=== PATIENT | male | born 2000 | race Caucasian/White ===

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

== ENCOUNTER 2021-08-30 12:58 | Emergency (ER) | payer SELFPAY ==
[2021-08-30 13:26] VITALS: BP 139/81; PULSE 86; RESP 17; TEMP 36.4; O2SAT 98
--- NOTE | 2021-08-30 13:30 | ED.GENADULT ---
HPI - General Adult General Chief complaint: Unspecified Stated complaint: jaw pain Time Seen by Provider: 08/30/21 13:14 Source: patient Mode of arrival: ambulatory Limitations: no limitations History of Present Illness HPI narrative: 20-year-old male Complains of waking up this morning with some swelling of his left lower jaw and pain in the back of his mouth on that side Symptoms are worsened by chewing or by opening his mouth He also has some discomfort when he swallows He does not have a fever or a sore throat Related Data Home Medications Medication Instructions Recorded Confirmed insulin glargine [Basaglar KwikPen 45 unit SUBCUT QAM 10/04/20 U-100 Insulin] insulin lispro [Humalog Pen] 10 unit SUBCUT HS 10/04/20 Allergies Allergy/AdvReac Type Severity Reaction Status Date / Time Penicillins Allergy Unknown RASH Verified 10/04/20 15:37 Review of Systems Constitutional: Constitutional: Denies fever(s) ENT: Reports dental pain, Denies dysphagia, Denies hoarseness, Denies lip swelling and Reports mouth pain Respiratory: Respiratory: Denies cough and Denies dyspnea [facility] Past Medical History Medical History Diabetes mellitus Social History Social History Smoking status: Current every day smoker Gender identity (if verbalized by the patient): Male Exam Const: General: healthy appearing, no acute distress and alert; No acute distress HENMT: Ears: TM normal on the left and no periauricular adenopathy Face and sinus: no sinus tenderness Mouth: Yes Normal oral and palatal mucosa present, No audible dysphonia and No drooling Teeth and gingiva: other (#17 tender to percuss, no gross caries, no gross visible abscess) Throat: tonsils normal, uvula midline, no peritonsillar masses and uvula not displaced Other: No adenopathy, no tenderness or induration to the floor of the mouth Neck: Neck: no lymphadenopathy Resp: Effort & Inspection: normal respiratory effort and not labored Course Vital Signs Vital signs: Vital Signs Temperature 36.4 C L 08/30/21 13:26 Pulse Rate 86 08/30/21 13:26 Respiratory Rate 17 08/30/21 13:26 Blood Pressure 139/81 08/30/21 13:26 Pulse Oximetry 98 08/30/21 13:26 Temperature 36.4 C L 08/30/21 13:26 Pulse Rate 86 08/30/21 13:26 Respiratory Rate 17 08/30/21 13:26 Blood Pressure 139/81 08/30/21 13:26 Pulse Oximetry 98 08/30/21 13:26 Medical Decision Making Vital Signs Vital Signs: Vital Signs Temperature 36.4 C L 08/30/21 13:26 Pulse Rate 86 08/30/21 13:26 Respiratory Rate 17 08/30/21 13:26 Blood Pressure 139/81 08/30/21 13:26 Pulse Oximetry 98 08/30/21 13:26 Temperature 36.4 C L 08/30/21 13:26 Pulse Rate 86 08/30/21 13:26 Respiratory Rate 17 08/30/21 13:26 Blood Pressure 139/81 08/30/21 13:26 Pulse Oximetry 98 08/30/21 13:26 Discharge Plan Discharge Clinical Impression: Dentalgia Patient Disposition: Home, Self-Care Condition: Stable Instructions: Antibiotic Form, Dental Abscess (ED) Additional Instructions: Important for you to schedule a follow-up examination with a dentist or oral surgeon to at least have some dental x-rays done and possibly the tooth extracted Prescriptions: New clindamycin HCl 300 mg capsule 300 mg PO QID Qty: 28 RF: 0 No Action insulin lispro [Humalog Pen] 100 unit/mL Insulin Pen 10 unit SUBCUT HS RF: 0 Basaglar KwikPen U-100 Insulin 100 unit/mL (3 mL) Insulin Pen 45 unit SUBCUT QAM RF: 0 Basaglar KwikPen U-100 Insulin 100 unit/mL (3 mL) insulin pen 45 unit subcut QPM Qty: 3 RF: 0 insulin lispro [Humalog KwikPen Insulin] 100 unit/mL insulin pen 3 unit subcut DAILY Qty: 3 RF: 0 Follow-up/Referrals: Man,Rachel Beasley [Primary Care Provider] - (Next week as needed)
== END 2021-08-30 14:06 | disposition home or self-care (01) ==
PROVIDERS: Emergency Provider Emergency Medicine; PCP Internal Medicine Infectious Disease
DX: K08.89 Other specified disorders of teeth and supporting structures (principal)
CPT/HCPCS: 99283

== ENCOUNTER 2022-07-03 16:47 | Emergency (ER) | payer OTHER, SELFPAY ==
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
[2022-07-03 16:57] VITALS: BP 142/84; PULSE 90; RESP 18; TEMP 36.8; O2SAT 98
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
== END 2022-07-03 21:15 | disposition home or self-care (01) ==
PROVIDERS: Emergency Provider Emergency Medicine
DX: S46.911A Strain of unspecified muscle, fascia and tendon at shoulder and upper arm level, right arm, initial encounter (principal); T14.8XXA Other injury of unspecified body region, initial encounter; V28.4XXA Motorcycle driver injured in noncollision transport accident in traffic accident, initial encounter; E11.9 Type 2 diabetes mellitus without complications; F17.200 Nicotine dependence, unspecified, uncomplicated; Z79.4 Long term (current) use of insulin
CPT/HCPCS: 71046; 73030; 73564; 73590; 73610; 99284

== ENCOUNTER 2022-07-28 09:50 | Outpatient (CLI) | payer OTHER, SELFPAY ==
--- NOTE | ~2022-07-28 | XR_ITS ---
XR cervical spine 4-5V 07/28/2022 10:25 Indication: Neck pain and radiculopathy Procedure: 4 views of the cervical spine Comparison: No prior studies for comparison. Findings: No prevertebral soft tissue swelling. Vertebral body and disc heights are preserved. Odonto id process is normal. Lung apices are normal. Impression: 1: No significant abnormality of the cervical spine. Reviewed, dictated and finalized at location A. Impression: 1: No significant abnormality of the cervical spine.
== END 2022-07-28 09:51 | disposition home or self-care (01) ==
LOC: ANHIMG 10:05
PROVIDERS: Visit Provider Chiropractor
DX: M54.12 Radiculopathy, cervical region (principal); M99.01 Segmental and somatic dysfunction of cervical region; M99.02 Segmental and somatic dysfunction of thoracic region; M79.18 Myalgia, other site
CPT/HCPCS: 72050

== ENCOUNTER 2022-08-04 08:02 | Outpatient (CLI) | payer OTHER, SELFPAY ==
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
--- NOTE | ~2022-08-04 | MR_ITS ---
EXAMINATION: MR foot LT wo con DATE: 08/04/2022 09:34 INDICATION: Left foot pain. TECHNIQUE: Magnetic resonance imaging (MRI) of the left foot was performed without intravenous contra st. COMPARISON: Left ankle radiographs 07/03/2022 FINDINGS: There is a skin marker anterior to the ankle. Bone alignment is normal. No fracture. There is edema-like marrow signal intensity in calcaneus and cuboid at either side of calcaneocuboid joint, likely stress reaction. There are changes of prior sprain of the superficial component of deltoid li gament characterized by increased signal intensity. There are changes of prior sprains of anterior ta lofibular ligament, calcaneofibular ligament, and anterior tibiofibular ligament characterized by thi ckening and increased signal intensity. Posterior talofibular ligament and posterior tibiofibular lig aments are normal. There is mild peroneus longus tendinopathy. The Achilles tendon is normal. The med ial and anterior ankle tendons are normal. There is no joint effusion. The plantar fascia is normal. IMPRESSION: 1. Edema-like marrow signal intensity in calcaneus and cuboid at either side of calcaneocuboid joint, likely stress reaction. 2. Medial and lateral ankle sprains. Reviewed, dictated and finalized at location B.
== END 2022-08-04 08:03 | disposition home or self-care (01) ==
PROVIDERS: PCP Internal Medicine Infectious Disease; Visit Provider Internal Medicine
DX: M79.672 Pain in left foot (principal); S49.91XA Unspecified injury of right shoulder and upper arm, initial encounter; M79.89 Other specified soft tissue disorders; S93.492A Sprain of other ligament of left ankle, initial encounter; S49.81XA Other specified injuries of right shoulder and upper arm, initial encounter; S43.431A Superior glenoid labrum lesion of right shoulder, initial encounter
CPT/HCPCS: 73221; 73718

== ENCOUNTER 2024-08-10 17:55 | Inpatient (IN) | payer BC, SELFPAY ==
--- NOTE | ~2024-08-10 | CT_ITS ---
EXAMINATION: CTA chest PE protocol DATE: 08/10/2024 21:38 INDICATION: Chest pain and elevated d-dimer. TECHNIQUE: Computed tomography (CT) pulmonary angiogram of the chest was performed with 100 mL Omnipa que-350 intravenous contrast. Additional 3D reconstructions utilizing coronal maximum intensity proje ction (MIP) were performed. Automated exposure control and iterative reconstruction technique were em ployed. The dose-length product was 695.08 mGy-cm. COMPARISON: None FINDINGS: No pulmonary embolism. Lungs are clear with no pneumonia, pulmonary edema or other pulmonary infiltra alan. No pleural effusion or pneumothorax. Heart size is normal. Thoracic aorta is normal in caliber w ith no dissection. Small amount residual thymic tissue in the anterior mediastinum. No pathologically enlarged thoracic lymphadenopathy. Visualized upper abdomen is unremarkable. Mild thoracic levocurva ture with mild spondylosis. IMPRESSION: 1. No pulmonary nodule is more other acute cardiopulmonary disease. Reviewed, dictated and finalized at location A.
--- NOTE | ~2024-08-10 | XR_ITS ---
CHEST RADIOGRAPH, PA AND LATERAL CLINICAL HISTORY: chest pain . COMPARISON: 07/03/2022 TECHNIQUE: PA and lateral views of the chest. FINDINGS The cardiomediastinal silhouette is unremarkable. The lungs are clear. Visualized osseous structures and soft tissues are unremarkable. IMPRESSION: No focal infiltrate or effusion. Reviewed, dictated and finalized at location A.
[2024-08-10 17:57] VITALS: BP 130/84; PULSE 104; RESP 18; TEMP 36.4; O2SAT 97
--- NOTE | 2024-08-10 17:58 | ECG_ITS ---
Test Date: 2024-08-10 18:07:47 Measurements Intervals [place] Rate: 106 P: 69 ID: [id number] QRS: 79 QRSD: 88 T: 33 QT: 317 QTc: 421 Interpretive Statements SINUS TACHYCARDIA POSSIBLE LEFT ATRIAL ENLARGEMENT [-0.1mV P WAVE IN V1/V2] NONSPECIFIC ST ELEVATION [0.05+ mV ST ELEVATION] No previous ECG available for comparison Electronically Signed On 08-11-2024 09:39:24 CDT by Darshan Robles M.D.
[2024-08-10 18:10] LABS: Basophils Absolute Auto 0.1 K/mm3 (0.0-0.1); Basophils Percent Auto 1.1 % (0.2-1.2); Eosinophils Absolute Auto 0.3 K/mm3 (0-0.3); Eosinophils Percent Auto 3.6 % (0-4.4); Hematocrit 46.7 % (42.0-52.0); Hemoglobin 16.6 g/dL (14.0-18.0); Immature Granulocyte Absolute 0.02 K/mm3 (0.00-0.031); Immature Granulocyte Percent A 0.3 % (0-0.5); Lymphocytes Absolute Auto 2.44 K/mm3 (0.9-3.2); Lymphocytes Percent Auto 32.7 % (18.3-44.2); Mean Corpuscular HGB Conc 35.5 g/dl (32-36); Mean Corpuscular Hemoglobin 30.9 pg (26-34); Mean Platelet Volume 11.7 fl (7.4-10.4); Monocytes Absolute Auto 0.5 K/mm3 (0.1-0.6); Monocytes Percent Auto 6.3 % (2.6-8.5); Neutrophils Absolute Auto 4.2 K/mm3 (1.3-6.7); Platelet Count Result 226 k/mm3 (150-375); Red Blood Count 5.37 M/mm3 (4.6-6.20); Red Cell Distribution Width 11.7 % (11.5-14.5); White Blood Count 7.5 K/mm3 (4.5-10.0)
[2024-08-10 18:22] LABS: INR 0.9; Partial Thromboplastin Time 24.4 Seconds (22.3-36.8); Prothrombin Time 12.4 Seconds (11.1-14.7)
--- NOTE | 2024-08-10 19:59 | ED.CHESTPAIN ---
HPI - Chest Pain General Chief Complaint: Chest Pain Stated Complaint: chest pain Time Seen by Provider: 08/10/24 19:46 History of Present Illness HPI narrative: Patient is a 23-year-old male who presents to the emergency department this evening complaining of sternal chest pain. Patient states that the pain feels like heavy pressure and does not radiate anywhere. Patient denies any associated symptoms including any shortness of breath. He admits to palpitations and feeling as though his heart has been racing. He denies any nausea vomiting or abdominal pain. Denies any fevers or chills at home and denies any recent URI illness. No history of cardiovascular disease. No additional symptoms or concerns at this time. Related Data Home Medications Medication Instructions Recorded Confirmed insulin glargine 100 unit/mL (3 45 unit subcut QAM 10/04/20 mL) subcutaneous pen (Basaglar KwikPen U-100 Insulin) insulin lispro 100 unit/mL 10 unit subcut HS 10/04/20 subcutaneous pen Allergies Allergy/AdvReac Type Severity Reaction Status Date / Time Penicillins Allergy Unknown RASH Verified 08/10/24 17:55 Review of Systems Review of Systems: All systems are reviewed and are negative unless stated otherwise in the HPI. [facility] Past Medical History Medical History Diabetes mellitus Social History Social History Smoking status: Current every day smoker Gender identity (if verbalized by the patient): Male Exam Narrative: General: Alert, awake, afebrile, in no acute distress. HEENT: PERRL, no rhinorrhea, no post nasal drip, oropharynx clear. Cardiovascular: Regular rate and rhythm, no murmurs, rubs or gallops, no peripheral edema. Respiratory: Clear to auscultation bilaterally, no tachypnea, no wheezing, no rhonchi, no rubs, no respiratory distress. Abdomen: Soft, nontender, nondistended, no rebound, no guarding, no peritoneal signs. Musculoskeletal: No joint swelling or deformity, normal muscle tone. Skin: No rashes or petechia, no signs of infection. Neurological: Alert and oriented to person, place, and time. Follows all commands. No focal deficits, speech is clear and fluent. Course Vital Signs Vital signs: Vital Signs Temperature 97.6 F 08/10/24 17:57 Pulse Rate 104 H 08/10/24 17:57 Respiratory Rate 18 08/10/24 17:57 Blood Pressure 130/84 08/10/24 17:57 Pulse Oximetry 97 08/10/24 17:57 Oxygen Delivery Room Air 08/10/24 17:57 Temperature 97.6 F 08/10/24 17:57 Pulse Rate 89 08/11/24 01:28 Respiratory Rate 13 08/11/24 01:28 Blood Pressure 116/58 L 08/11/24 01:28 Pulse Oximetry 97 08/11/24 01:28 Oxygen Delivery Room Air 08/10/24 20:05 MDM - Chest Pain MDM Narrative Medical decision making narrative: The patient was evaluated by myself in the emergency department. History is obtained from patient who is an independent historian and physical exam was performed. External medical records were reviewed at this time. IV was established and pertinent tests were ordered. Patient was administered a 1 L IV fluid bolus with normal saline. EKG was obtained which revealed sinus tachycardia rate of 106 beats per minute, no evidence of acute ischemia. EKG was independently interpreted by me and is currently pending official cardiology read. Blood work obtained revealed an anion gap of 21, bicarb of 14 and a glucose of 351. Patient was administered a 2 L IV fluid bolus with normal saline and 7 units of IV insulin and repeat basic metabolic panel revealed a bicarb of 15, anion gap of 17 and glucose of 257. Beta hydroxybutyrate was obtained and noted to be elevated at 6.84. Case was discussed with the on-call hospitalist who recommended a you admission and IV insulin drip. At this time patient was started on D5 half-normal saline with 20 KCL at 150 cc/hour a
[2024-08-10 20:05] VITALS: PULSE 70; O2SAT 99
[2024-08-10] MEDS: SODIUM CHLORIDE 0.9% IV 1,000 ML 999 ML IV CONT ×2 (20:19→21:52)
[2024-08-10 20:20] LABS: D Dimer 0.55 ug/mL (<0.48)
[2024-08-10 21:10] LABS: Alanine Aminotransferase 16 U/L (6-50); Albumin Level 4.7 g/dL (3.5-5.1); Alkaline Phosphatase 152 U/L (38-126); Anion Gap 21 mmol/L (4-12); Aspartate Amino Transferase 18 U/L (17-59); Bilirubin,Total 0.8 mg/dL (0.2-1.3); Blood Urea Nitrogen 15 mg/dL (9-20); Calcium 9.2 mg/dL (8.4-10.2); Carbon Dioxide 14 mmol/L (22-30); Chloride 98 mmol/L (98-107); Estimated CRCL calculation 166 ml/min; Estimated Glomerular Filt Rate > 60; Glucose 350 mg/dL (65-110); Lipase 59 U/L (23-300); Magnesium 1.6 mg/dL (1.6-2.3); Potassium 4.4 mmol/L (3.4-5.0); Sodium 133 mmol/L (137-145)
[2024-08-10 21:21] LABS: Troponin I < 0.012 ng/mL (0.000-0.034)
[2024-08-10] MEDS: INSULIN HUMAN REGULAR (*BKC) 100 UNITS/ML 7 UNITS IV PUSH (21:52)
[2024-08-10 21:54] VITALS: BP 119/70; PULSE 94; RESP 23; O2SAT 99
[2024-08-10 23:40] VITALS: BP 131/76; PULSE 89; RESP 16; O2SAT 98
[2024-08-10 23:45] LABS: Anion Gap 17 mmol/L (4-12); Blood Urea Nitrogen 12 mg/dL (9-20); Calcium 8.1 mg/dL (8.4-10.2); Carbon Dioxide 15 mmol/L (22-30); Chloride 104 mmol/L (98-107); Estimated CRCL calculation 191 ml/min; Estimated Glomerular Filt Rate > 60; Glucose 257 mg/dL (65-110); Potassium 3.7 mmol/L (3.4-5.0); Sodium 136 mmol/L (137-145)
[2024-08-10 23:57] LABS: Troponin I < 0.012 ng/mL (0.000-0.034)
[2024-08-11] VITALS (7 sets, daily range): BP systolic 109–127; BP diastolic 58–77; PULSE 60–89; RESP 13–24; TEMP 36.4–36.7; O2SAT 97–100; BMI 26.5
[2024-08-11] MEDS: SODIUM CHLORIDE 0.9% IV 1,000 ML 999 ML IV CONT (00:23)
[2024-08-11 01:01] LABS: Beta-Hydroxybutyrate/Acetoacetate 6.84 mmol/L (0.02-0.27)
--- NOTE | 2024-08-11 01:31 | PM.IMHP ---
H&P: HPI History of Present Illness Date/Time: 08/11/24 01:31 Chief Complaint: palpitations Narrative: This is a 23-year-old male with past medical history significant for type 1 diabetes mellitus, presents to the emergency room with palpitations, body aches, back pain, patient did not take his insulin over the weekend as he was out of town, PATIENT DENIES ANY FEVERS, COUGH, NO NAUSEA NO VOMITING NO ABDOMINAL PAIN. Preliminary workup was significant for beta hydroxybutyrate of 6.8 anion gap of 22. Patient has been admitted for further evaluation management EXAMINATION: CTA chest PE protocol DATE: 08/10/2024 21:38 INDICATION: Chest pain and elevated d-dimer. TECHNIQUE: Computed tomography (CT) pulmonary angiogram of the chest was performed with 100 mL Omnipaque-350 intravenous contrast. Additional 3D reconstructions utilizing coronal maximum intensity projection (MIP) were performed. Automated exposure control and iterative reconstruction technique were employed. The dose-length product was 695.08 mGy-cm. COMPARISON: None FINDINGS: No pulmonary embolism. Lungs are clear with no pneumonia, pulmonary edema or other pulmonary infiltrates. No pleural effusion or pneumothorax. Heart size is normal. Thoracic aorta is normal in caliber with no dissection. Small amount residual thymic tissue in the anterior mediastinum. No pathologically enlarged thoracic lymphadenopathy. Visualized upper abdomen is unremarkable. Mild thoracic levocurvature with mild spondylosis. IMPRESSION: 1. No pulmonary nodule is more other acute cardiopulmonary disease. CHEST RADIOGRAPH, PA AND LATERAL CLINICAL HISTORY: chest pain . COMPARISON: 07/03/2022 TECHNIQUE: PA and lateral views of the chest. FINDINGS The cardiomediastinal silhouette is unremarkable. The lungs are clear. Visualized osseous structures and soft tissues are unremarkable. IMPRESSION: No focal infiltrate or effusion. Review of Systems Review of Systems: palpitations, body aches, back pain PMFSH Past Medical History Medical History Diabetes mellitus Social History Social History Smoking status: Never smoker Alcohol intake: never Substance use: never Do You Feel Safe in your Home?: Yes Lack of Transportation: No Lack of Food: Never True Current Housing: I Have Housing Concerned About Future Housing: No Difficulty Paying Gas/Electric Bills: No Difficulty Paying for Meds: No Currently Unemployed: No Education: Decline to Answer Difficulty w/ Childcare or Family Care: No Gender identity (if verbalized by the patient): Male Spiritual care concerns: No Meds Home Medications and Allergies Home Medications Medication Instructions Recorded Confirmed Type insulin aspart U-100 100 unit/mL 1 sliding scale dose subcut ACHS 08/11/24 08/11/24 History subcutaneous solution (Novolog U-100 Insulin aspart) insulin pump cart,automated,BT 08/11/24 08/11/24 History (Omnipod 5 G6 Pods (Gen 5) subcutaneous cartridge) insulin glargine 100 unit/mL (3 30 unit (0.3 mL) subcut QAM #15 mL 08/12/24 Rx mL) subcutaneous pen (Lantus Solostar U-100 Insulin) insulin syringe-needle U-100 1/2 #1 pkg 08/12/24 Rx mL 31 gauge x 15/64 (BD Veo Insulin Syringe Ultra-Fine) Allergies Allergy/AdvReac Type Severity Reaction Status Date / Time Penicillins Allergy Unknown RASH Verified 08/10/24 17:55 Vital Signs Vital Signs - 24 hr 08/10/24 17:57 08/10/24 20:05 08/10/24 20:05 Temperature 97.6 F Pulse Rate 104 H 70 Respiratory Rate 18 Blood Pressure 130/84 Pulse Oximetry 97 99 Oxygen Delivery Room Air Room Air 08/10/24 21:54 08/10/24 23:40 08/11/24 01:28 Temperature Pulse Rate 94 89 89 Respiratory Rate 23 H 16 13 Blood Pressure 119/70 131/76 116/58 L Pulse Oximetry 99 98 97 Oxygen De
[2024-08-11 01:56] LABS: Alveolar/Arterial O2 Gradient 14.7 mmHg; Base Excess ABG -11.8 mEq/l (+/-2.0); Carboxyhemoglobin 0.6 % THb (0-2.0); Fractional Inspired Oxygen 21 %; HCO3 ABG 13.5 mEq/l (22.0-26.0); Methemoglobin ABG 0.3 %THb (0-1.5); Oxygen Content ABG 20.4 %vol (16.0-22.0); Oxygen Saturation ABG 96.8 % (95.0-100.0); Oxyhemoglobin 96.5 % THb (90.0-100.0); PCO2 ABG 29.9 mmHg (35.0-45.0); PO2 ABG 99.2 mmHg (80.0-100.0); PO2 FiO2 Ratio Arterial Blood 4.72 %; Reduced Hemoglobin 2.6 %THb (0-5.0)
[2024-08-11 01:58] LABS: Modified Allen's Test Pass; Site Drawn RIGHT RADIAL; pH ABG 7.273 (7.350-7.450)
[2024-08-11] MEDS: INSULIN HUMAN REGULAR (*BKC) 100 UNITS in SODIUM CHLORIDE 0.9% IV 99 ML 9 UNITS IV CONT (02:05)
[2024-08-11 02:25] LABS: Anion Gap 17 mmol/L (4-12); Blood Urea Nitrogen 11 mg/dL (9-20); Calcium 7.8 mg/dL (8.4-10.2); Carbon Dioxide 14 mmol/L (22-30); Chloride 106 mmol/L (98-107); Estimated CRCL calculation 166 ml/min; Estimated Glomerular Filt Rate > 60; Glucose 268 mg/dL (65-110); Potassium 3.5 mmol/L (3.4-5.0); Sodium 137 mmol/L (137-145)
[2024-08-11] MEDS: KCL 20 MEQ/D5/0.45% SOD CHL 1,000 ML 150 ML IV CONT (02:35)
[2024-08-11 02:37] LABS: Troponin I < 0.012 ng/mL (0.000-0.034)
[2024-08-11 02:59] LABS: Hemoglobin A1C > 14.0 % (<5.7)
[2024-08-11 03:43] LABS: Glucose Point of Care 243 mg/dl (65-105)
[2024-08-11 03:43] LABS: Glucose Point of Care 248 mg/dl (65-105)
--- NOTE | 2024-08-11 04:01 | PC.NURSE ---
Patient uses an insulin pump at that is currently out of insulin. The patient receives 1.5 units/hour and boluses 1 unit per 10 carbs at home.
[2024-08-11 04:45] LABS: MRSA (PCR) NOT DETECTED (NOT DETECTE)
[2024-08-11 04:52] LABS: Glucose Point of Care 117 mg/dl (65-105)
[2024-08-11 06:30] LABS: Anion Gap 9 mmol/L (4-12); Blood Urea Nitrogen 11 mg/dL (9-20); Calcium 7.9 mg/dL (8.4-10.2); Carbon Dioxide 22 mmol/L (22-30); Chloride 106 mmol/L (98-107); Estimated CRCL calculation 191 ml/min; Estimated Glomerular Filt Rate > 60; Glucose 79 mg/dL (65-110); Potassium 3.1 mmol/L (3.4-5.0); Sodium 137 mmol/L (137-145)
[2024-08-11 06:43] LABS: Glucose Point of Care 101 mg/dl (65-105)
[2024-08-11 06:43] LABS: Glucose Point of Care 83 mg/dl (65-105)
[2024-08-11 07:58] LABS: Glucose Point of Care 118 mg/dl (65-105)
[2024-08-11] MEDS: INSULIN GLARGINE (*BKC) 100 UNITS/ML 30 UNITS SUB-Q (08:44)
[2024-08-11] MEDS: POTASSIUM CHLORIDE 20 MEQ ER TABLET 40 MEQ PO (08:44)
[2024-08-11] MEDS: POTASSIUM CHLORIDE INJ 40 MEQ in SODIUM CHLORIDE 0.9% IV 500 ML 130 MEQ IVPB (08:48)
[2024-08-11 09:17] LABS: Glucose Point of Care 137 mg/dl (65-105)
--- NOTE | 2024-08-11 09:21 | WPDCNINT ---
Assessment and Plan Assessment and plan (1) DKA (diabetic ketoacidosis): Code(s): E11.10 - Type 2 diabetes mellitus with ketoacidosis without coma Status: Acute Assessment and Plan: Patient presented with DKA secondary to noncompliance. Patient was given IVF bolus and started on infusion Patient was started on Insulin infusion and Q1H glucose monitoring was done Serial labs were performed Patient has clinically improved and his anion gap is closed. I will transition patient to subcutaneous insulin. Will start diet. We will transition him back to his insulin pump once the pump is available. (2) Dehydration: Code(s): E86.0 - Dehydration Status: Acute Assessment and Plan: Improved with IV fluids (3) Chest pressure: Code(s): R07.89 - Other chest pain Status: Acute Assessment and Plan: Noncardiac by history and presentation. Has resolved now. Negative CTA. EKG shows sinus tachycardia. Troponin x3 negative. (4) Electrolyte abnormality: Code(s): E87.8 - Other disorders of electrolyte and fluid balance, not elsewhere classified Status: Acute Assessment and Plan: Potassium replacement ordered Plan DVT prophylaxis -patient ambulating, SCDs in bed Nutrition -consistent carbohydrate diet Code Status - Full Code Transfer out of ICU today [employer] Consult Note Consult date: 08/11/24 HPI: Omar Marina . is a 23 year old male past medical history of diabetes since age of 18 was on insulin at baseline presented yesterday to ER with chief complaint of feeling sick shortness of breath palpitations and chest pressure.. Patient states that he went out of town for the weekend and did not take his insulin pump with him. Over the weekend he started feeling thirsty with increased shortness of breath. He also felt that his heart was racing fast. He called his mother who recommended him to come to the ER. He denies any nausea vomiting abdominal pain or back pain. Just prior to arrival to ER he felt little bit of chest pressure which was transient and resolved by itself. He denied any radiation and graded as mild in severity. Patient denies fever, chest pain, cough, nausea vomiting, abdominal pain,, diarrhea, headache or constipation. All other systems were reviewed and were negative Workup in the ER showed CTA chest to be negative for PE or any acute cardiopulmonary abnormality. His workup showed beta hydroxybutyrate to be 6.8 anion gap of 22. His blood sugar was 351. Normal WBC Patient was given IV fluids and started IV insulin infusion admitted to ICU for further evaluation management. This morning patient states he is feeling much better and symptoms have resolved. He is willing to start diet. He does not have his insulin pump with him. He told me that he has a basal rate of 1.5 units/hour and place takes sliding scale bolus with meals. Review of Systems Review of Systems: All systems reviewed & are unremarkable except as noted in HPI and below PMFSH Past Medical History Medical History Diabetes mellitus Social History Social History Smoking status: Never smoker Alcohol intake: never Substance use: never Do You Feel Safe in your Home?: Yes Lack of Transportation: No Lack of Food: Never True Current Housing: I Have Housing Concerned About Future Housing: No Difficulty Paying Gas/Electric Bills: No Difficulty Paying for Meds: No Currently Unemployed: No Education: Decline to Answer Difficulty w/ Childcare or Family Care: No Gender identity (if verbalized by the patient): Male Spiritual care concerns: No Meds Home Medications and Allergies Home Medications Medication Instructions Recorded Confirmed Type insulin aspart U-100 100 unit/mL 1 sliding scale dose subcut ACHS 08/11/24 08/11/24 History subcutaneous
[2024-08-11 10:40] LABS: Anion Gap 10 mmol/L (4-12); Blood Urea Nitrogen 12 mg/dL (9-20); Carbon Dioxide 24 mmol/L (22-30); Chloride 104 mmol/L (98-107); Estimated CRCL calculation 166 ml/min; Estimated Glomerular Filt Rate > 60; Glucose 152 mg/dL (65-110); Potassium 3.7 mmol/L (3.4-5.0); Sodium 138 mmol/L (137-145)
[2024-08-11 11:25] LABS: Glucose Point of Care 261 mg/dl (65-105)
[2024-08-11] MEDS: INSULIN ASPART (*BKC) 100 UNITS/ML SUB-Q ×4 (11:26→20:29)
[2024-08-11 14:18] LABS: Anion Gap 8 mmol/L (4-12); Blood Urea Nitrogen 12 mg/dL (9-20); Calcium 8.3 mg/dL (8.4-10.2); Carbon Dioxide 22 mmol/L (22-30); Chloride 106 mmol/L (98-107); Estimated CRCL calculation 191 ml/min; Estimated Glomerular Filt Rate > 60; Glucose 225 mg/dL (65-110); Potassium 4.2 mmol/L (3.4-5.0); Sodium 136 mmol/L (137-145)
[2024-08-11 15:05] LABS: Add Urine Microscopic? NO; Appearance Urine Clear (Clear); Bilirubin Urine Negative (Negative); Blood Urine Negative (Negative); Color Urine Yellow (Yellow); Glucose Urine UA 3+ mg/dL (Negative); Ketones Urine 3+ mg/dL (Negative); Leukocyte Esterase Ur Negative LEU/UL (Negative); Nitrate Urine Negative (Negative); Protein Urine Negative (Negative); Specific Grav Ur 1.036 (1.001-1.035); Urobilinogen Urine 0.2 mg/dL (<2.0); pH Urine 5.5 (5.0-9.0)
--- NOTE | 2024-08-11 15:53 | PM.IMPN ---
Progress Note: A&P Assessment and Plan (1) DKA (diabetic ketoacidosis): Code(s): E11.10 - Type 2 diabetes mellitus with ketoacidosis without coma Status: Acute Assessment and Plan: Patient presented with DKA secondary to noncompliance. Patient was given IVF bolus and started on infusion Patient was started on Insulin infusion and Q1H glucose monitoring was done Serial labs were performed Patient has clinically improved and his anion gap is closed. I will transition patient to subcutaneous insulin. Will start diet. We will transition him back to his insulin pump once the pump is available. (2) Dehydration: Code(s): E86.0 - Dehydration Status: Acute Assessment and Plan: Improved with IV fluids (3) Chest pressure: Code(s): R07.89 - Other chest pain Status: Acute Assessment and Plan: Noncardiac by history and presentation. Has resolved now. Negative CTA. EKG shows sinus tachycardia. Troponin x3 negative. (4) Electrolyte abnormality: Code(s): E87.8 - Other disorders of electrolyte and fluid balance, not elsewhere classified Status: Acute Assessment and Plan: Potassium replacement ordered Subjective Date/time seen: 08/11/24 15:53 Interval history: Patient reports that he was out of insulin pump for past 1 week. 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 Came to ER and was diagnosed with DKA was started on insulin infusion the ICU. Currently his anion gap is closed patient will be transferred to floor. His repeat BMP at 1:00 p.m. shows still anion gap is closed. Patient is currently on Lantus 30 units and sliding scale. Able to tolerate diet. Denies Nausea vomiting or abdominal pain. Review of Systems Review of Systems: palpitations, body aches, back pain All systems reviewed & are unremarkable except as noted in HPI and below Exam Narrative: General: Pt is alert awake and in NAD Lungs/Chest: Trachea central Clear BS B/L, No crackles or wheezing. Cardiac: RRR. Normal S1 S2. No murmurs Circulation: Pedal pulses are intact and symmetrical. Abdomen: Normal bowel sounds.. Soft. NT. ND. Extremities: No clubbing, cyanosis or edema. Warm : Woods in place Neurologic: Follows commands. Moves all 4 extremities PERRL Skin: No Rash Const: General: comfortable, no acute distress, well developed, alert, awake, average body habitus and thin Nutritional Appearance: average body habitus and thin Orientation/consciousness: patient oriented x3 Other: well appearing HENMT: Head: normal to inspection, normocephalic and atraumatic Ears: hearing grossly normal bilaterally Face/Nose/Sinus: normal facial exam Face and sinus: normal facial exam Eyes: General: appearance normal, both eyes and all related structures Pupils: Equal, round and reactive pupils present EOM: EOMs intact bilaterally Neck: Neck: full ROM, no lymphadenopathy and no JVD Thyroid: thyroid normal Lymphatic: no lymphadenopathy noted Resp: Effort & Inspection: normal respiratory effort and able to speak in complete sentences Auscultation: clear to auscultation bilaterally Cardio: Jugular venous distension: no JVD Rate: regular rate Rhythm: regular rhythm Heart sounds: S1 normal heart sound present and S2 normal heart sound present : General: Yes deferred Skin: Rashes: no rashes Wounds: no wounds Neuro: General: patient oriented x3 and CN's II-XI intact bilaterally Cranial nerves: Yes CN's II-XII intact bilaterally and Yes Equal, round and reactive pupils present Cognition (Neuro): normal cognition Speech: normal speech Gait exam (Neuro): Normal gait present Motor exam (neuro): 5/5 motor strength present throughout Extrem: General: normal to inspection, full ROM, no joint enlargement and no pedal edema Objective Data Vital Signs Vital Signs: Vital Signs - 24 hr 08/10/24 17:57 08/10/24 20:05 08/10/24
[2024-08-11 16:27] LABS: Glucose Point of Care 154 mg/dl (65-105)
[2024-08-11 20:35] LABS: Glucose Point of Care 220 mg/dl (65-105)
[2024-08-11 23:56] LABS: Add Urine Microscopic? NO; Appearance Urine Clear (Clear); Bilirubin Urine Negative (Negative); Blood Urine Negative (Negative); Color Urine Yellow (Yellow); Glucose Urine UA 3+ mg/dL (Negative); Ketones Urine 3+ mg/dL (Negative); Leukocyte Esterase Ur Negative LEU/UL (Negative); Nitrate Urine Negative (Negative); Protein Urine Negative (Negative); Specific Grav Ur 1.037 (1.001-1.035); Urobilinogen Urine 0.2 mg/dL (<2.0); pH Urine 5.5 (5.0-9.0)
[2024-08-12 04:39] LABS: Hematocrit 39.8 % (42.0-52.0); Hemoglobin 14.1 g/dL (14.0-18.0); Mean Corpuscular HGB Conc 35.4 g/dl (32-36); Mean Corpuscular Hemoglobin 30.9 pg (26-34); Mean Corpuscular Volume 87.3 fl (80-100); Mean Platelet Volume 11.2 fl (7.4-10.4); Platelet Count Result 159 k/mm3 (150-375); Red Blood Count 4.56 M/mm3 (4.6-6.20); Red Cell Distribution Width 11.9 % (11.5-14.5); White Blood Count 5.6 K/mm3 (4.5-10.0)
[2024-08-12 04:48] LABS: Alanine Aminotransferase 12 U/L (6-50); Albumin Level 3.4 g/dL (3.5-5.1); Alkaline Phosphatase 86 U/L (38-126); Anion Gap 9 mmol/L (4-12); Aspartate Amino Transferase 15 U/L (17-59); Bilirubin,Total 0.6 mg/dL (0.2-1.3); Blood Urea Nitrogen 8 mg/dL (9-20); Calcium 8.1 mg/dL (8.4-10.2); Carbon Dioxide 25 mmol/L (22-30); Chloride 100 mmol/L (98-107); Estimated CRCL calculation 191 ml/min; Estimated Glomerular Filt Rate > 60; Glucose 223 mg/dL (65-110); Magnesium 1.6 mg/dL (1.6-2.3); Potassium 3.3 mmol/L (3.4-5.0); Sodium 134 mmol/L (137-145)
[2024-08-12 06:21] VITALS: BP 115/66; PULSE 68; RESP 16; TEMP 36.7; O2SAT 97
[2024-08-12 07:33] LABS: Glucose Point of Care 207 mg/dl (65-105)
[2024-08-12 08:00] VITALS: BP 114/71; PULSE 68; RESP 18; TEMP 36.6; O2SAT 95
[2024-08-12] MEDS: INSULIN ASPART (*BKC) 100 UNITS/ML SUB-Q ×4 (08:02→11:51)
[2024-08-12] MEDS: INSULIN GLARGINE (*BKC) 100 UNITS/ML 30 UNITS SUB-Q (08:04)
[2024-08-12] MEDS: POTASSIUM CHLORIDE 20 MEQ ER TABLET 40 MEQ PO (08:05)
[2024-08-12 08:46] VITALS: O2SAT 97
[2024-08-12 11:38] LABS: Glucose Point of Care 224 mg/dl (65-105)
[2024-08-12 11:50] VITALS: BMI 26.6
--- NOTE | 2024-08-12 14:43 | PM.DS ---
DS: Admitting Diagnosis Discharge Date 08/12/2024 Admitting Diagnosis DKA DS: Discharge Diagnosis Discharge Diagnosis (1) DKA (diabetic ketoacidosis): Code(s): E11.10 - Type 2 diabetes mellitus with ketoacidosis without coma Status: Acute Assessment and Plan: Patient presented with DKA secondary to noncompliance. Patient was given IVF bolus and started on infusion Patient was started on Insulin infusion and Q1H glucose monitoring was done Serial labs were performed Patient has clinically improved and his anion gap is closed. I will transition patient to subcutaneous insulin. Will start diet. We will transition him back to his insulin pump once the pump is available. (2) Dehydration: Code(s): E86.0 - Dehydration Status: Acute Assessment and Plan: Improved with IV fluids (3) Chest pressure: Code(s): R07.89 - Other chest pain Status: Acute Assessment and Plan: Noncardiac by history and presentation. Has resolved now. Negative CTA. EKG shows sinus tachycardia. Troponin x3 negative. (4) Electrolyte abnormality: Code(s): E87.8 - Other disorders of electrolyte and fluid balance, not elsewhere classified Status: Acute Assessment and Plan: Potassium replacement ordered DS: Summary Hospital Course Hospital Course: Omar Marina Jr. is a 23 year old male past medical history of diabetes since age of 18 was on insulin at baseline presented yesterday to ER with chief complaint of feeling sick shortness of breath palpitations and chest pressure.. Patient states that he went out of town for the weekend and did not take his insulin pump with him. Over the weekend he started feeling thirsty with increased shortness of breath. He also felt that his heart was racing fast. He called his mother who recommended him to come to the ER. He denies any nausea vomiting abdominal pain or back pain. Just prior to arrival to ER he felt little bit of chest pressure which was transient and resolved by itself. He denied any radiation and graded as mild in severity. Patient denies fever, chest pain, cough, nausea vomiting, abdominal pain,, diarrhea, headache or constipation. All other systems were reviewed and were negative Workup in the ER showed CTA chest to be negative for PE or any acute cardiopulmonary abnormality. His workup showed beta hydroxybutyrate to be 6.8 anion gap of 22. His blood sugar was 351. Normal WBC Patient was given IV fluids and started IV insulin infusion admitted to ICU for further evaluation management. He has a basal rate of 1.5 units/hour and place takes sliding scale bolus with meals. After the insulin infusion patient clinically improved and his anion gap was closed. He was transitioned to subcutaneous insulin with 30 units of Lantus q.a.m. patient is able to tolerate food without any incidence of nausea vomiting or diarrhea. Patient today has been discharged with Lantus 30 units q.a.m. and NovoLog 6 units as bolus until he sees his primary care physician for his insulin pump requirements. Status at Discharge Cognitive/behavioral status at discharge: Stable Time Spent with Patient Time attestation: Total time spent providing and/or coordinating discharge services: 45 mins Exam Narrative: General: Pt is alert awake and in NAD Lungs/Chest: Trachea central Clear BS B/L, No crackles or wheezing. Cardiac: RRR. Normal S1 S2. No murmurs Circulation: Pedal pulses are intact and symmetrical. Abdomen: Normal bowel sounds.. Soft. NT. ND. Extremities: No clubbing, cyanosis or edema. Warm : Woods in place Neurologic: Follows commands. Moves all 4 extremities PERRL Skin: No Rash Const: General: comfortable, no acute distress, well developed, alert, awake, average body habitus and thin Nutritional Appearance: average body habitus and thin Orientation/consciousness: patient oriented x3 Other: well appearing HENMT: Head: normal to inspe
== END 2024-08-12 15:15 | disposition home or self-care (01) | DRG 639 ==
LOC: ANHED 08-11 01:41 → ANHICU 08-11 02:22
PROVIDERS: Emergency Medicine; Internal Medicine; Admitting Provider Internal Medicine; Emergency Provider Emergency Medicine; PCP Internal Medicine Infectious Disease; Visit Provider General Practice
DX: E10.10 Type 1 diabetes mellitus with ketoacidosis without coma (principal); E86.0 Dehydration; E87.8 Other disorders of electrolyte and fluid balance, not elsewhere classified; R07.89 Other chest pain; Z96.41 Presence of insulin pump (external) (internal); F17.210 Nicotine dependence, cigarettes, uncomplicated; Z91.199 Patient's noncompliance with other medical treatment and regimen due to unspecified reason; Z79.4 Long term (current) use of insulin
CPT/HCPCS: 36415; 36600; 71046; 71275; 80048; 80053; 81003; 82010; 82375; 82805; 82948; 83036; 83050; 83690; 83735; 84484; 85018; 85025; 85027; 85380; 85610; 85730; 87641; 93005; 96361; 96374; 99285; A9270; J1815; J3480; J7030; J7040; Q9967

== ENCOUNTER 2025-07-01 09:04 | Emergency (ER) | payer OTHER, SELFPAY ==
--- OUTSIDE RECORDS SUMMARY | 2024-09-30 07:27 | XMS_ITS | Continuity of Care Document ---
Author Organization [facility] Address [address] [place] [address] [place] [address] Phone Care Team Providers Care Leveler Name Role Phone Luis Armando Henriquez MD Unavailable Unavailable Allergies, Adverse Reactions, Alerts Substance Reaction Status Criticality shellfish derived GI Problems Active No Informa tion Penicillins Hives / Skin RashSwe lling of oral cavity structure Active No Information Medications Medication Instructions Dosage Effective Dates (start - stop) Status Comments Lantus Solostar U-100 Insulin 100 unit/mL (3 mL) subcutaneous pen inject by subcutaneous route as per insulin protocol 0.00 - Active 30 units daily Procedures Procedure Date OFFICE/OUTPATIENT VISIT, [facility] Advance Directives Directive Yes / No Effective Date File Name No Information Encounters Encounter Description Practice Location Reason(s) For Visit Diagnoses Date Provider Providers Copied on Encounter OFFICE/OUTPAT IENT VISIT, [facility], [address] [place], [id number], [place] tel:[phone] [facility] DM (chief complaint) Type 1 diabetes mellitus without complications [address] [place], [place], [id number] , [place]. tel:[phone] Family History Family Member Type Diagnosis Age At Onset Sister Problem autism Father Problem back pain Mother Problem anemia Mother Problem back pain Payers Payer name Insurance type Covered democrat ID Authoriza tion(s) No Information Social History Type Description Quantity Date Captured Comments Alcohol Use Details No Caffeine Use Details Unknown Tobacco Use Status Current non-smoker Smoking Status Never smoker Non-Smoking Tobacco Use Details : No Details Available : No Details Available Sex Male Vital Signs Date / Time: Height Weight BMI Pulse Rate Blood Pressure Temperature Respiratory Rate Body Surface Area Head Circumference BMI percentile Pulse Ox Inhaled Ox 12:33 PM 74.00 in 223.40 lbs 28.6 8 kg/m eter (2) 78 /min 120/80 mm[Hg] 97.4 F 16 /min Chief Complaint And Reason For Visit From encounter dated '09/30/2024 12:27'. DM (chief complaint). Description: pt has type I DM and he is on insulin pump since the age of [age]. her endo closed the practice and he run out of insulin and was admitted to hospital for DKA two months ago. Pt since has been placed on lantus 30 units with humalog before meals and his glucose has been consistently around 120s or less. Pt denies any hypoglycemia. Pt has glorai with new endo in the near future but he is not sure the date. he needs work statement completed. he feels fine overall Plan Of Treatment Date Type Action Status No Information History Of Present Illness Encounter Date Complaint History Of Prese nt Illness DM pt has type I DM and he is on insulin pump since the age of [age]. her endo closed the practice and he run out of insulin and was admitted to hospital for DKA two months ago. Pt since has been placed on lantus 30 units with humalog before meals and his glucose has been consistently around 120s or less. Pt denies any hypoglycemia. Pt has gloria with new endo in the near future but he is not sure the date. he needs work statement completed. he feels fine overall Instructions Date Instruction Additional Infor mation No Information Assessments Type Assessment Date assessment Type 1 diabetes mellitus without complications Mental Status Date Cognitive Assessment Orientation - Beardsley ed to time, place, person, situation.
[2025-07-01 09:09] VITALS: BP 125/72; PULSE 84; RESP 16; TEMP 36.4; O2SAT 100
--- OUTSIDE RECORDS SUMMARY | 2025-07-01 09:42 | XMS_ITS | Clinical Summary ---
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 Gender Identity Not on file Sexual Orientation Not on file Plan of Treatment Health Maintenance Due Date Last Done Comments Hepatitis C Virus (HCV) Screening 2001 Human Papillomavirus (HPV) Immunization (2 - Male 3-dose series) 06/04/2019 05/07/2019 Meningococcal B Immunization (2 of 2 - Bexsero SCDM 2-dose series) 11/07/2019 05/07/2019 SARS-COV-2 Immunization ( - season) 2024 Influenza Immunization (#1) 2025 Respiratory Syncytial Virus (RSV) Immunization (Adult) (1 - 1-dose 75+ series) 2076 Hepatitis B Immunization Completed 003, 01/28/2002, 2001 Measles Mumps Rubella (MMR) Immunization Discontinued 06/05/2007 Polio (IPV) Immunization Discontinued 007, 08/19/2002, 01/28/2002 Varicella Immunization Discontinued 06/05/2007 DTaP/Tdap/Td Immunization Discontinued 2012, 06/05/2007, 10/28/2002, Additional history exists TdaP Immunization Completed 08/04/2013 Hepatitis A Immunization Discontinued 05/07/2019, 07/22 Meningococcal Immunization (ACWY) Completed 05/07/2019 Pneumococcal Immunization Combined Aged Out No longer eligible based on patient's age to complete this topic Rotavirus Immunization Aged Out No lo nger eligible based on patient's age to complete this topic
--- OUTSIDE RECORDS SUMMARY | 2025-07-01 09:42 | XMS_ITS | Clinical Summary ---
Author Organization [address] Address [address] [place] [address] Care Team Providers Care Flatwork Assembler Name Role Phone Ramos Larson MD Primary Care Provider Allergies Active Allergy Reactions Criticality Noted Date Comments Penicillins Rash,Swelling,Urticaria Medium 04/29/2019 Shellfish Anaphylaxis High 10/05/2021 Medications INSULIN LISPRO SUBQ 1 unit per 5 grams carbohydrate. Max daily dose 80 units. 05/01/20 19 Active insulin glargine 100 unit/mL (3 mL) pen for injection Inject 50 Units under the skin nightly 05/06/20 19 Active acetaminophen (TYLENOL) 500 mg tablet Take 1 tablet (500 mg total) by mouth every 6 (six) hours as needed 05/02/20 19 Active isopropyl alcohol-benzo nadya (Alcohol-Oracio ocaine) 70-6 % pads, medicated PRN, with blood sugar checks and insulin injections. 04/30/20 19 Active blood glucose diagnostic (glucose blood) strip Use to test 5-9 times daily 01/24/20 22 Active insulin control clerk food and beverage cart,aut,G6/7 ,cntr (Omnipod 5 G6-G7 Intro Kt,Gen5,) cartridge Use for insulin administration 1 each 06/03/20 25 Active blood-glucose sensor (Dexcom G7 Sensor) device Use for BG monitoring 3 each 06/03/20 25 Active insulin pump cart,auto,BT, G6/7 (Omnipod 5 G6-G7 Pods, Gen 5,) cartridge Use for insulin administration 10 each 06/03/20 25 Active insulin lispro (HumaLOG) 100 unit/mL pen for injection Inject 0-18 Units under the skin 4 (four) times a day before meals and nightly Up to 80 units daily 15 mL 3 06/03/20 25 Active pen needle, diabetic (Pen Needle) 31 gauge x 5/16 needle Use to inject 1-4 times daily as directed 100 each 11 06/03/20 Active glucagon (Gvoke HypoPen 1-Pack) 1 mg/0.2 mL auto-injector Inject 1 mg under the skin as needed (Hypoglycemia) 0.2 mL 06/03/20 Active glucagon 1 mg kit Inject 1 mL (1 mg total) into the muscle as instructed as needed 04/30/202024 Discontinued Active Problems Problem Noted Date Diagnosed Date Uncontrolled type 1 diabetes mellitus with hyper glycemia 04/29/2019 Overview (06/03/2025): Diagnosed antibody positive 04/29/19 Encounters Date Type Department Care Team Description 06/03/2025 2:30 PM CDT Office Visit [facility] [address] [address] Juan Francisco Sauceda MD Type 1 diabetes mellitus with hyperglycemia (HCC) (Primary Dx) from Last 3 Months Immunizations Immunization Administration Dates Next Due DTaP 06/05/2007, 3,08/19/2002,01/28 HPV9 05/07/2019 Hep A, Pediatric 05/07/2019,08/18/2008 Hep B / HiB 01/28/2002 Hep B, Adolescent or Pediatric 10/28/2002,2001 HiB 10/28/2002,08/19/2002 IPV 06/05/2007,08/19/2002,01/28/2002 Influenza, Quadrivalent, Spl it, Intramuscular 10/12/2021 Influenza, Split 08/18/2008 MMRV 06/05/2007 Meningococcal B, OMV (Bexsero) 05/07/2019 Meningococcal MCV4P (Menactra) 05/07/2019 Tdap 11/25/2023,08/04/2013 Social History Tobacco Use Types Packs/Day Years Used Date Smoking Tobacco: Never Smokeless Tobacco: Never Tobacco Cessation:Counseling Given: Not Answered Sex and Gender Information Value Date Recorded Sex Assigned at Not on file 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 Gender Identity Not on file Sexual Orientation Not on file Obstetrics History Last Filed Vital Signs Vital Sign Reading Time Taken Comments Blood Pressure 122/68 06/03/2025 2:54 PM CDT Pulse 66 06/03/2025 2:54 PM CDT Temperature - - Respiratory Rate 16 06/03/2025 2:54 PM CDT Oxygen Saturation - - Inhaled Oxygen Concentration - - Weight 100.5 kg (221 lb 9.6 oz) 06/03/2025 2:54 PM CDT Height 188 cm (6' 2) 06/03/2025 2:54 PM CDT Body Mass Index 28.45 06/03/2025 2:54 PM CDT Plan of Treatment Health Maintenance Due Date Last Done Comments Albumin Creatinine Ratio, Urine 2001 Depression Screening 2001 Foot Exam 2001 Hepatitis C Screening 2001 TSH Level 2001 eGFR 2001 Varicella Vaccines (2 of 2 - 2-dose childhood series) 08/28/2007 06/05/2007 Dilated Eye Exam 2011 Lipid Panel 2011 HPV Vaccines (2 - Male 3-dos e series) 06/04/2019 05/07/2019 Meningococcal B Vaccine (2 o f 2 - Bexsero SCDM 2-dose series) 11/07/2019 05/07/2019 Regular Well Visit/Exam 18-64 2019 Pneumococcal vaccine <65 (1 of 2 - PCV) 2020 Influenza Vaccine (#1) 2025 10/12/2021, 2007 Hemoglobin A1C 12/04/2025 06/03/2025, 04/29/2019 DTaP/Tdap/Td Vaccine (7 - Td or Tdap) 11/25/2033 11/25/2023, 08/04/2013, 06/05/2007, Additional history exists Hepatitis B Screening Completed 10/28/2002 , 01/28/2002, 2001 Procedures Procedure Name Priority Date/Time Associated Diagnosis Comments POCT GLUCOSE Routine 06/03/2025 2:54 PM CDT Type 1 diabetes mellitus with hyperglycemia (HCC) POCT HEMOGLOBIN A1C Routine 06/03/2025 2 :54 PM CDT Type 1 diabetes mellitus with hyperglycemia (HCC) from Last 3 Months Results * (ABNORMAL) POCT hemoglobin A1c (06/03/2025 2:54 PM CDT) Hemoglobin A1C, POC 14.0(A) 4.0 - 5.6 % Comment:None Capillary blood 06/03/2025 2 :54 PM CDT Juan Francisco Sauceda MD POINT OF CARE TEST ORDERABLES Fi nal Result * POCT glucose (06/03/2025 2:54 PM CDT) Glucose Blood, POC 89 Normal Fasting 70 - 100, Random <200 mg/dL Comment:None Blood 06/03/2025 2:54 PM CDT us Juan Francisco Sauceda MD POINT OF CARE TEST ORDERABLES Fi nal Result from Last 3 Months Insurance [facility] Care Teams Flatwork Assembler Relationship Specialty [place] [address] [place] [id number] PCP - General Internal Medicine 10/01/24
--- NOTE | 2025-07-01 09:48 | ED.SKABFB ---
HPI - Skin/Abscess/Foreign Bdy General Chief complaint: Skin/Abscess/Foreign Body Stated complaint: possible tick bite to leg Time Seen by Provider: 07/01/25 09:14 History of Present Illness HPI narrative: Patient is a 24-year-old female who presents to the with concerns for a rash on his right leg. He reports he 1st noticed this spot on Saturday, 4 days ago. Patient reports the area has become red and painful, but today he started experiencing numbness above the site. He reports he was outside on Saturday. Patient reports he did not see a tick but he saw something ?black at the head of the wound. He denies any recent fevers, calf pain, or joint pain. Patient endorses a history of type 1 diabetes and has an insulin pump. He denies any other medical history relevant to this ER visit. Related Data Home Medications ?Medication ?Instructions ?Recorded ?Confirmed ?Last Taken ?Type insulin aspart U-100 100 unit/mL 1 sliding scale dose subcut ACHS 08/11/24 08/11/24 Unknown History subcutaneous solution (Novolog U-100 Insulin aspart) insulin pump cart,automated,BT 08/11/24 08/11/24 Unknown History (Omnipod 5 G6 Pods (Gen 5) subcutaneous cartridge) Allergies Allergy/AdvReac Type Severity Reaction Status Date / Time Penicillins Allergy Unknown RASH Verified 07/01/25 09:14 Review of Systems Review of Systems: All systems reviewed & are unremarkable except as noted in HPI and below PMFSH Past Medical History Medical History Diabetes mellitus Social History Social History Smoking status: Never smoker Alcohol intake: never Substance use: never Do You Feel Safe in your Home?: Yes Lack of Transportation: No Lack of Food: Never True Current Housing: I Have Housing Concerned About Future Housing: No Difficulty Paying Gas/Electric Bills: No Difficulty Paying for Meds: No Currently Unemployed: No Education: Decline to Answer Difficulty w/ Childcare or Family Care: No Gender identity (if verbalized by the patient): Male Spiritual care concerns: No Exam Narrative: GENERAL: Well appearing, well-nourished, non-toxic, in no acute distress. HEAD: Normocephalic, atraumatic. NECK: Supple. No adenopathy, no masses. RESPIRATORY: Airway patent, respirations nonlabored. Clear to auscultation bilaterally, no rales, rhonchi, wheezing. CARDIOVASCULAR: Regular rate and rhythm without murmurs, rubs, or gallops. Peripheral pulses 2+ and equal bilaterally. ABDOMINAL: Soft, nontender, nondistended, no hepatosplenomegaly. Normoactive BS. MUSCULOSKELETAL: Moves all extremities. Strength/ROM intact without gross deformities. SKIN: Warm, dry, normal color. Right medial calf dime-sized area of redness, no area of induration, no visible drainage, no bull's eye rash NEURO: A&O X3. Speech clear. Cranial nerves II-XII intact. No ataxic movements. PSYCHIATRIC: Appropriate mood and affect. Normal interaction. Course Vital Signs Vital signs: Vital Signs Temperature 36.4 C 07/01/25 09:09 Pulse Rate 84 07/01/25 09:09 Respiratory Rate 16 07/01/25 09:09 Blood Pressure 125/72 07/01/25 09:09 Pulse Oximetry 100 07/01/25 09:09 Oxygen Delivery Room Air 07/01/25 09:09 Temperature 36.4 C 07/01/25 09:09 Pulse Rate 84 07/01/25 09:09 Respiratory Rate 16 07/01/25 09:09 Blood Pressure 125/72 07/01/25 09:09 Pulse Oximetry 100 07/01/25 09:09 Oxygen Delivery Room Air 07/01/25 09:09 MDM - Skin/Abscess/Foreign Bdy MDM Narrative Medical decision making narrative: Patient is a 24-year-old female who presents to the with concerns for a rash on his right leg. He reports he 1st noticed this spot on Saturday, 4 days ago. Patient reports the area has become red and painful, but today he started experiencing numbness above the site. He reports he was outside on Saturday. Patient reports he did not see a tick but he saw something ?black at the head of the wound. He denies any recent fevers, calf pain, or joint pain. Patient endorses a history of type 1 diabetes and has an insulin pump. He denies any other medical history relevant to this ER visit. Medications Ordered: Doxycycline Diagnosis: Insect bite Patient Education/Shared MDM: Results of examination shared with patient. I do not believe this is a tick bite but rather some type of insect bite. Patient advised to closely monitor the area and observe for a bull's eye rash. He will be placed on doxycycline due to his documented allergy to penicillin and due to his history of diabetes, which puts him at higher risk for infection. Patient strongly advised to follow-up with his PCP in the next 2-3 days to ensure he is healing. He will be discharged home with a prescription for doxycycline with his 1st dose given here in the ER. Strict return precautions provided. Patient verbalized understanding and is in agreement with plan. Vital signs stable at time of discharge. All questions answered. Differential Diagnosis Differential diagnosis: Likely abscess of skin or subcutaneous tissue, urticaria, cellulitis, eczema and insect bites Discharge Plan Discharge Clinical Impression: Cellulitis, Insect bites Patient Disposition: Home Condition: Stable Instructions: Antibiotic Form, Cellulitis (ED), Insect Bite or Sting (ED) Additional Instructions: Please return to the ER with any worsening symptoms. Follow-up with primary care provider in the next 2-3 days to ensure your healing. Take all medications as prescribed, including regularly scheduled medications. Complete your full dose of antibiotics. Patient Language: Scottish Prescriptions: New doxycycline monohydrate 100 mg tablet 100 mg PO BID Qty: 20 0RF No Action insulin aspart U-100 [Novolog U-100 Insulin aspart] 100 unit/mL solution 1 sliding scale dose subcut ACHS (DME) Omnipod 5 G6 Pods (Gen 5) Cartridge SUBCUT insulin glargine [Lantus Solostar U-100 Insulin] 100 unit/mL (3 mL) insulin pen 30 unit subcut QAM Qty: 15 0RF (DME) insulin syringe-needle U-100 [BD Veo Insulin Syringe UF] 1/2 mL 31 gauge x 15/64 syringe Qty: 1 0RF Rx Instructions: 0.5 mL syringe for doses up to 50 units. May substitute to meet patient needs. Use As Directed Follow-up/Referrals: Neo,Rachel Beasley [Primary Care Provider] Time of Disposition: 09:58
[2025-07-01] MEDS: DOXYCYCLINE HYCLATE 100 MG TABLET PO (09:56)
--- OUTSIDE RECORDS SUMMARY | 2025-07-01 11:17 | XMS_ITS | Clinical Summary ---
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
--- OUTSIDE RECORDS SUMMARY | 2025-07-01 11:17 | XMS_ITS | Clinical Summary ---
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
== END 2025-07-01 10:16 | disposition home or self-care (01) ==
LOC: ANHED 10:06
PROVIDERS: Emergency Provider Registered Nurse; PCP Internal Medicine Infectious Disease
DX: S80.861A Insect bite (nonvenomous), right lower leg, initial encounter (principal); L03.115 Cellulitis of right lower limb; E11.9 Type 2 diabetes mellitus without complications; W57.XXXA Bitten or stung by nonvenomous insect and other nonvenomous arthropods, initial encounter
CPT/HCPCS: 99283; A9270